=== PATIENT | male | born 1940 | race African-American/Black ===

== ENCOUNTER 2016-09-14 07:25 | Day surgery (SDC) | payer MEDICARE ==
[~2016-09-14] VITALS: Ht 172.7 cm; Wt 96.2 kg
[~2016-09-14 07:25] MED LIST: AMITRIPTYLIN25 MG PO; ASPIRIN 8181 MG PO; CEPHALEXIN500 MG PO; GABAPENTIN300 M2 PO; HUMULIN 70/30 SC; LISINOP/HCTZ1 TA1 PO; MOTRIN800 MG PO; MOTRIN800 MG/TAB PO; NAPROSYN500 MG PO; PERCOCET 5/325M1 TAB PO; SIMVASTATIN40 MG PO; VITAMIN D5000 UNIT PO; VITAMIN D50000 UN1 PO
[2016-09-14 10:13] VITALS: BP 125/71
== END 2016-09-14 10:26 | disposition home or self-care (01) ==
LOC: ENDO 07:25
PROVIDERS: ATTEND Surgery
PROC: 0DJD8ZZ Inspection of Lower Intestinal Tract, Via Natural or Artificial Opening Endoscopic (ICD-10-PCS; principal; 2016-09-14)
DX: Z12.11 Encounter for screening for malignant neoplasm of colon (principal); K57.30 Diverticulosis of large intestine without perforation or abscess without bleeding; E11.9 Type 2 diabetes mellitus without complications; I10 Essential (primary) hypertension; Z79.4 Long term (current) use of insulin; Z85.46 Personal history of malignant neoplasm of prostate

== ENCOUNTER 2019-01-20 22:13 | Emergency (ER) | payer MEDICARE ==
[~2019-01-20] VITALS: Ht 172.7 cm; Wt 94.5 kg
[2019-01-20 22:44] LABS: URINE BILIRUBIN - DIPSTICK NEGATIVE (NEGATIVE); URINE BLOOD DIPSTICK NEGATIVE (NEGATIVE); URINE COLOR YELLOW; URINE GLUCOSE - DIPSTICK NEGATIVE (NEGATIVE); URINE KETONE NEGATIVE (NEGATIVE); URINE LEUK ESTERASE NEGATIVE (NEGATIVE); URINE PROTEIN - DIPSTICK NEGATIVE (NEG-TRACE); URINE SPECIFIC GRAVITY 1.025; URINE UROBILINOGEN - DIPSTICK 0.2 E.U./dL (0.2)
[2019-01-20 22:47] LABS: URINE NITRITE - DIPSTICK POSITIVE (Negative)
[2019-01-20 22:52] LABS: URINE BACTERIA MODERATE hpf; URINE RBC 0-2 RBC/hpf (0-5); URINE WBC 0-2 WBC/hpf (0-5)
[2019-01-21 00:01] VITALS: BP 116/60
== END 2019-01-21 00:01 | disposition home or self-care (01) ==
LOC: ED 22:13
PROVIDERS: Emergency Medicine
DX: M54.5 Low back pain (principal); X50.3XXA Overexertion from repetitive movements, initial encounter; Y93.H1 Activity, digging, shoveling and raking; R82.71 Bacteriuria

== ENCOUNTER 2019-03-13 13:41 | Observation (INO) | payer MEDICARE ==
[~2019-03-13] VITALS: Ht 172.7 cm; Wt 95.2 kg
[~2019-03-13 13:41] MED LIST changes: -HUMULIN 70/30 SC; +NOVOLIN 70/30 SC
--- NOTE | 2019-03-13 13:50 | NUR ---
WHEELCHAIR TO ER ROOM 2, TO BED
[2019-03-13 14:37] LABS: IMMATURE GRANULOCYTES 0.4 % (0.0-5.0); MEAN CELL VOLUME 80.7 fL CALC (80.0-100.0); MEAN CORPUSCULAR HGB 25.7 pG CALC (26.0-32.0); MEAN CORPUSCULAR HGB CONC 31.8 g/L CALC (32.0-36.0); NEUT# 4.9 thou/uL (1.82-7.42); RED BLOOD COUNT 4.6 mill/uL (4.70-6.10); RED CELL DISTRI WIDTH 15.3 % (11.5-15.5)
[2019-03-13 14:38] LABS: HEMATOCRIT 37.1 % (39.0-50.0); HEMOGLOBIN 11.8 g/dl (14.0-18.0)
--- NOTE | 2019-03-13 14:50 | NUR ---
PATIENT RESTING REPORTING PAIN 8 ON 0-10 SCALE PATIENT AWAITING RADIOLOGY RESULTS
[2019-03-13 14:56] LABS: ALKALINE PHOSPHATASE 55 u/l (38-126); ANION GAP 16 (6-22 (CALC)); BUN 29 mg/dL (8-23); BUN/CREATININE RATIO 24 (12-20 (CALC)); CARBON DIOXIDE 25 mmol/l (22-30); CHLORIDE 97 mmol/l (95-108); CREATININE 1.2 mg/dL (0.7-1.3); GFR 59 ML/MIN (>=60 (CALC)); GFR FOR AFR.AMER. > 60 ML/MIN (>=60 (CALC)); POTASSIUM 4.1 mmol/l (3.5-5.1); SGOT/AST 24 u/l (19-48); SODIUM 134 mmol/l (137-146); TOTAL PROTEIN 7.2 g/dL (6.3-8.2)
--- NOTE | 2019-03-13 15:50 | NUR ---
PATIENT RESTING MEDICATION INFUSING PER MD ORDER PATIENT RATS PAIN 5 ON 0-10 SCALE
--- NOTE | 2019-03-13 17:01 | NUR ---
PATIENT TRANSPORTED TO [facility]
--- NOTE | 2019-03-13 17:01 | NUR ---
CALLED MED SURG AND GAVE REPORT TO ZELDA.
[2019-03-13 17:07] VITALS: BP 133/74
--- NOTE | 2019-03-13 17:41 | NUR ---
PT TRANSPORTED TO [facility] VIA STRETCHER ACCOMPIANED BY ER NURSE. VS DONE. [PT A/O X3. RESP EVEN AND UNLABORED. LUNG SOUNDS CLEAR. BOWEL SOUNDS ACTIVE X4. STRONG RADIAL/PEDAL PULSES. #20 RAC SL. FLUSHED AND PATENT. SITE APPEARS HEALTHY. LT ELBOW SWELLING NOTED; WARM TO TOUCH; PT C/O ACHING PAIN 8 OUT OF 10. MEDICATED W/ LORTAB 5MG PO. REPOSITIONED FOR COMFORT. SKIN INTACT. PT DENIES ANY FURTHER NEEDS. POC DISCUSSED. SAFETY PRECAUTIONS IN PLACE. CALL LIGHT IN REACH. WILL CONTINUE TO MONITOR.
--- NOTE | 2019-03-13 19:06 | NUR ---
REPORT RECEIVED FROM NIKHIL NDIAYE. PT RESTING IN BED. NO S/S OF DISTRESS AT THIS TIME. SAFETY PRECAUTIONS IN PLACE. WILL CONTINUE TO MONITOR.
[2019-03-13 19:35] VITALS: BP 122/67
--- NOTE | 2019-03-13 20:15 | NUR ---
PT SITTING ON THE SIDE OF THE BED. ALERT AND ORIENTED. RESPIRATIONS EVEN AND UNLABORED ON RA. LUNGS SOUND CLEAR. PEDAL PULSES ARE STRONG. PT REPORTS HAVING A HEAD ACHE PAIN OF A 1/10 PT TO BE MEDICATED PER EMAR ORDERS. SAFETY PRECAUTIONS IN PLACE, WILL CONTINUE TO MONITOR.
--- NOTE | 2019-03-14 00:08 | NUR ---
PT RESTING IN BED WITH EYES CLOSED. RESPIRATIONS EVEN AND UNLABORED ON RA. NO S/S OF DISTRESS AT THIS TIME. WILL CONTINUE TO MONITOR.
[2019-03-14 04:41] VITALS: BP 121/66
[2019-03-14 05:46] LABS: ANION GAP 14 (6-22 (CALC)); BUN 27 mg/dL (8-23); BUN/CREATININE RATIO 29 (12-20 (CALC)); CARBON DIOXIDE 27 mmol/l (22-30); CHLORIDE 100 mmol/l (95-108); CREATININE 0.9 mg/dL (0.7-1.3); GFR > 60 ML/MIN (>=60 (CALC)); GFR FOR AFR.AMER. > 60 ML/MIN (>=60 (CALC)); POTASSIUM 4.1 mmol/l (3.5-5.1); SODIUM 137 mmol/l (137-146)
--- NOTE | 2019-03-14 06:55 | NUR ---
PT REPORT RECIEVED FROM JYOTHI WEBSTER. PT SLEEPING. NO S/S OF DISTRESS. CALL LIGHT IN REACH. WILL CONTINUE TO MONITOR.
[2019-03-14 07:30] VITALS: BP 133/76
--- NOTE | 2019-03-14 07:30 | NUR ---
PT A/O X3. RESP EVEN AND UNLABORED. LUNG SOUNDS CLEAR. BOWEL SOUNDS ACTIVE X4. STRONG RADIAL/PEDAL PULSES. #20 RAC SL. FLUSHED AND PATENT; SITE APPEARS HEALTHY. SKIN INTACT. PT C/O ACHING ELBOW PAIN; 9 OUT OF 10 ON PAIN SCALE, TRACE OF EDEMA/ WARM TO TOUCH. MEDICATED W/ 5MG LORTAB PO; REPOSITIONED FOR COMFORT. PT DENIES ANY FURTHER NEEDS. POC DISCUSSED. SAFETY PRECAUTIONS IN PLACE. CALL LIGHT IN REACH. WILL CONTINUE TO MONITOR.
[2019-03-14 07:39] LABS: HEMATOCRIT 39.6 % (39.0-50.0); HEMOGLOBIN 12.4 g/dl (14.0-18.0); IMMATURE GRANULOCYTES 0.2 % (0.0-5.0); MEAN CELL VOLUME 81.5 fL CALC (80.0-100.0); MEAN CORPUSCULAR HGB 25.5 pG CALC (26.0-32.0); MEAN CORPUSCULAR HGB CONC 31.3 g/L CALC (32.0-36.0); NEUT# 3.73 thou/uL (1.82-7.42); RED BLOOD COUNT 4.86 mill/uL (4.70-6.10); RED CELL DISTRI WIDTH 15.2 % (11.5-15.5)
[2019-03-14] MEDS ORDERED: LYRICA75 MG PO (09:27)
[2019-03-14] MEDS ORDERED: CHOLESTEROL (09:28)
--- NOTE | 2019-03-14 12:15 | NUR ---
PT ON PHONE. NO C/O PAIN OR NEEDS. CALL LIGHT IN REACH. WILL CONTINUE TO MONITOR.
[2019-03-14 15:32] VITALS: BP 120/69
--- NOTE | 2019-03-14 16:12 | NUR ---
PT WATCHING TELEVISION. NO C/O PAIN OR NEEDS. CALL LIGHT IN REACH. WILL CONTINUE TO MONITOR.
--- NOTE | 2019-03-14 19:00 | NUR ---
REPORT FROM ZELDA TEJEDA. PT RESTING IN BED. ALERT AND ORIENTED. PT DENIES ANY PAIN OR DISCOMFORT AT THIS TIME. IV SITE APPEARS HEALTHY. NO APPARENT DISTRESS NOTED. DISCUSSED POC. PT VERBALIZED UNDERSTANDING. CALL LIGHT WITHIN REACH. WILL CONTINUE TO MONITOR.
[2019-03-14 19:28] VITALS: BP 131/69
--- NOTE | 2019-03-14 22:20 | NUR ---
PT MEDICATED FOR LEFT ARM PAIN 9-10 WITH PRN LORTAB. ARM ELEVATED ON PILLOW AT THIS TIME. PT DENIES ANY OTHER WANTS OR NEEDS. IV ABT INFUSING WITHOUT DIFFICULTY. NO S/S OF ADVERSE REACTION NOTED. CALL LIGHT WITHIN REACH. WILL CONTINUE TO MONITOR.
--- NOTE | 2019-03-15 02:19 | NUR ---
PT RESTING IN BED WITH EYES CLOSED. NO APPARENT DISTRESS NOTED. CALL LIGHT WITHIN REACH. WILL CONTINUE TO MONITOR.
[2019-03-15 04:54] VITALS: BP 141/79
--- NOTE | 2019-03-15 06:28 | NUR ---
ACCUCHECK 59. ASYMPTOMATIC. JUICE PROVIDED TO PT AT THIS TIME. WILL CONTINUE TO MONITOR.
--- NOTE | 2019-03-15 06:30 | NUR ---
PT MEDICATED FOR PAIN WITH PO LORTAB. ALSO ADMINISTERED MOM AT THIS TIME. PT DENIES ANY OTHER WANTS OR NEEDS. CALL LIGHT WITHIN REACH. WILL CONTINUE TO MONITOR.
--- NOTE | 2019-03-15 06:45 | NUR ---
REPORT RECEIVED. PT RESTING IN BED. WILL CONTINUE TO MONITOR.
--- NOTE | 2019-03-15 06:50 | NUR ---
CURRENT ACCUCHECK 69.
[2019-03-15 07:45] VITALS: BP 144/79
--- NOTE | 2019-03-15 07:45 | NUR ---
PT RESTING IN BED AWAKE. PT IS ALERT AND ORIENTED X3. SHIFT ASSESSMENT COMPLETED AT THIS TIME. IV PATENT X1. CALL LIGHT IN REACH. WILL CONTINUE TO MONITOR.
[2019-03-15 08:55] VITALS: BP 144/79
--- NOTE | 2019-03-15 11:35 | NUR ---
PT SITTING UP EATING LUNCH. RESP ARE EVEN AND UNLABORED. NO DISTRESS NOTED. CALL LIGHT IN REACH. WILL CONTINUE TO MONITOR.
[2019-03-15] MEDS ORDERED: KEFLEX500 M1 PO (12:29)
[2019-03-15] MEDS ORDERED: TRAMADOL HCL50 MG PO (12:29)
--- NOTE | 2019-03-15 12:30 | NUR ---
DR SARGENT AT BEDSIDE AT THIS TIME
--- NOTE | 2019-03-15 12:51 | NUR ---
SLING APPLIED PER MD ORDERS
--- NOTE | 2019-03-15 13:00 | NUR ---
IV site discontinued, cath intact. No edema , no redness, voices no discomfort.
--- NOTE | 2019-03-15 13:30 | NUR ---
DISCHARGE INSTRUCTIONS REVIEWED WITH PATIENT. PT VERBALIZED UNDERSTANDING. PHONED VOLUNTEER FOR WHEELCHAIR.
--- NOTE | 2019-03-15 13:39 | NUR ---
Discharge instructions given. Patient verbalizes understanding of same. Discharged in stable condition via Wheelchair to Home with family. All belongings sent with pt.
== END 2019-03-15 13:37 | disposition home or self-care (01) ==
LOC: ED 13:41 → ED-I 14:05 → ED 14:05 → ED-I 15:40 → ED 16:04 → MS2 16:05
PROVIDERS: ADMIT Internal Medicine; ATTEND Internal Medicine
PROC: 3E0234Z Introduction of Serum, Toxoid and Vaccine into Muscle, Percutaneous Approach (ICD-10-PCS; principal; 2019-03-15)
DX: S52.132A Displaced fracture of neck of left radius, initial encounter for closed fracture (principal); L03.114 Cellulitis of left upper limb; G56.01 Carpal tunnel syndrome, right upper limb; I10 Essential (primary) hypertension; E11.9 Type 2 diabetes mellitus without complications; Z79.4 Long term (current) use of insulin; Z23 Encounter for immunization; X58.XXXA Exposure to other specified factors, initial encounter
CPT/HCPCS: Q9967

== ENCOUNTER 2019-12-22 17:45 | Emergency (ER) | payer MEDICARE ==
[~2019-12-22] VITALS: Ht 172.7 cm; Wt 94.0 kg
[~2019-12-22 17:45] MED LIST changes: +CHOLESTEROL; +KEFLEX500 M1 PO; +LYRICA75 MG PO; +TRAMADOL HCL50 MG PO
[2019-12-22] MEDS ORDERED: MILK OF MAG30 ML/UDC PO (17:59)
[2019-12-22 18:28] LABS: IMMATURE GRANULOCYTES 0.2 % (0.0-5.0); MEAN CELL VOLUME 81.1 fL CALC (80.0-100.0); MEAN CORPUSCULAR HGB CONC 30.8 g/dL CAL (32.0-36.0); NEUT# 2.62 thou/uL (1.82-7.42); RED BLOOD COUNT 5.92 mill/uL (4.70-6.10); RED CELL DISTRI WIDTH 16.9 % (11.5-15.5)
[2019-12-22 18:29] LABS: HEMOGLOBIN 14.8 g/dl (14.0-18.0)
[2019-12-22 18:45] LABS: ALBUMIN 4.5 g/dL (3.2-5.0); ALKALINE PHOSPHATASE 73 u/l (38-126); ANION GAP 12 (6-22 (CALC)); BILIRUBIN, TOTAL 0.8 mg/dL (0.0-1.4); BUN 22 mg/dL (8-23); BUN/CREATININE RATIO 17 (12-20 (CALC)); CARBON DIOXIDE 28 mmol/l (22-30); CHLORIDE 100 mmol/l (95-108); CREATININE 1.3 mg/dL (0.7-1.3); GFR 54 ML/MIN (>=60 (CALC)); GFR FOR AFR.AMER. > 60 ML/MIN (>=60 (CALC)); LIPASE 222 u/l (23-300); SGOT/AST 30 u/l (19-48); SODIUM 136 mmol/l (137-146)
[2019-12-22 20:37] VITALS: BP 110/62
== END 2019-12-22 20:21 | disposition home or self-care (01) ==
LOC: ED 17:45
DX: K59.00 Constipation, unspecified (principal); E11.9 Type 2 diabetes mellitus without complications; I10 Essential (primary) hypertension; Z79.4 Long term (current) use of insulin

== ENCOUNTER 2021-02-15 18:43 | Emergency (ER) | payer MEDICARE, OTHER ==
[~2021-02-15] VITALS: Ht 172.7 cm; Wt 95.4 kg
[~2021-02-15 18:43] MED LIST changes: +MILK OF MAG30 ML/UDC PO
[2021-02-15] MEDS ORDERED: CYCLOBENZAPRINE10 MG PO (21:02)
[2021-02-15] MEDS ORDERED: NAPROXEN500 MG PO (21:02)
[2021-02-15 21:10] VITALS: BP 172/91
== END 2021-02-15 21:14 | disposition home or self-care (01) | DRG 552 ==
LOC: ED 18:43
DX: S13.9XXA Sprain of joints and ligaments of unspecified parts of neck, initial encounter (principal); E11.9 Type 2 diabetes mellitus without complications; I10 Essential (primary) hypertension; E78.00 Pure hypercholesterolemia, unspecified; V54.5XXA Driver of pick-up truck or van injured in collision with heavy transport vehicle or bus in traffic accident, initial encounter; Z79.84 Long term (current) use of oral hypoglycemic drugs

== ENCOUNTER 2021-04-16 14:49 | Observation (INO) | payer MEDICARE ==
[~2021-04-16] VITALS: Ht 172.7 cm; Wt 92.0 kg
[~2021-04-16 14:49] MED LIST changes: +CYCLOBENZAPRINE10 MG PO; +NAPROXEN500 MG PO
--- NOTE | 2021-04-16 14:55 | NUR ---
PT TO ROOM VIA WC FOR BEDSIDE TRIAGE ALERT AND RESPONSIVE
[2021-04-16 15:49] LABS: HEMATOCRIT 44.6 % (39.0-50.0); HEMOGLOBIN 13.8 g/dl (14.0-18.0); IMMATURE GRANULOCYTES 0.1 % (0.0-5.0); MEAN CORPUSCULAR HGB 25.4 pG CALC (26.0-32.0); MEAN CORPUSCULAR HGB CONC 30.9 g/dL CAL (32.0-36.0); NEUT# 4.23 thou/uL (1.82-7.42); RED BLOOD COUNT 5.44 mill/uL (4.70-6.10); RED CELL DISTRI WIDTH 15.4 % (11.5-15.5)
--- NOTE | 2021-04-16 15:51 | NUR ---
PT RESTING ON ED BED FOLLOWING PORTABLE CHEST X-RAY. PT REPORTS PAIN IMPROVING AND RATES AT 7/10, NO DENIES ANY NAUSEA. SKIN WARM AND DRY. FLUIDS INFUSING AT BOLUS RATE, IV SITE CDI. PT STABLE AT THIS TIME.
[2021-04-16 16:02] LABS: ALBUMIN 4.2 g/dL (3.2-5.0); ALKALINE PHOSPHATASE 74 u/l (38-126); ANION GAP 14 (6-22 (CALC)); BUN 23 mg/dL (8-23); BUN/CREATININE RATIO 18 (12-20 (CALC)); CARBON DIOXIDE 27 mmol/l (22-30); CHLORIDE 99 mmol/l (95-108); CREATININE 1.3 mg/dL (0.7-1.3); GFR 53 ML/MIN (>=60 (CALC)); GFR FOR AFR.AMER. > 60 ML/MIN (>=60 (CALC)); LIPASE 234 u/l (23-300); POTASSIUM 4.2 mmol/l (3.5-5.1); SGOT/AST 28 u/l (19-48); SODIUM 135 mmol/l (137-146); TOTAL PROTEIN 8.2 g/dL (6.3-8.2)
[2021-04-16 16:03] LABS: BILIRUBIN, TOTAL 0.8 mg/dL (0.0-1.4)
[2021-04-16 16:13] LABS: MYOGLOBIN 155 ng/mL (0 - 121)
--- NOTE | 2021-04-16 17:05 | NUR ---
PT ASSISTED WITH REPOSITIONING IN BED FOR COMFORT. PT STATES PAIN IS SOME BETTER AND PRESENT WHEN TOUCHING OR WITH MOVEMENT. PT STABLE. WILL CONTINUE TO MONITOR.
--- NOTE | 2021-04-16 18:05 | NUR ---
EKG REPEATED PER VERBAL ORDER FROM DR AYALA AND HANDED OFF TO SPLITTING MACHINE OPERATOR TO BE UPLOADED. PT STABLE AT THIS TIME. WILL CONTINUE TO MONITOR.
--- NOTE | 2021-04-16 18:35 | NUR ---
PT TO BE ADMITTED, GOING TO ROOM 271
--- NOTE | 2021-04-16 19:10 | NUR ---
CALL PLACED TO MED/SURG TO GIVE REPORT-RN WILL CALL BACK
--- NOTE | 2021-04-16 19:23 | NUR ---
SBAR REPORT GIVEN TP JYOTHI MEJÍA MED/SURG. PT TO BE ADMITTED TO ROOM 271. RN WILL CALL WHEN ROOM IS READY.
--- NOTE | 2021-04-16 20:40 | NUR ---
PT TAKEN TO MED SURG VIA CART IN STABLE CONDITION. PT'S BELONGINGS BAGGED AND HANDED OFF TO KYM ROE ALONG WITH ALL DOCUMENTS.
[2021-04-16 20:45] VITALS: BP 141/74
--- NOTE | 2021-04-16 20:45 | NUR ---
PT ARRIVED TO MED SURG UNIT VIA STRETCHER ACCOMPANIED BY ED NURSE. PT APPEARS TO BE IN STABLE CONDITION AT THIS TIME, SELF AMBULATED TO BED FROM STRETCHER WITH STABLE GAIT. TIMBER APPRAISER IN W/PT OBTAINING V/S AND ORIENTING PT TO ROOM
--- NOTE | 2021-04-16 20:56 | NUR ---
PT IS ON CELLPHONE AT THIS TIME, WILL RETURN FOR ASSESSMENT AND ADMISSION.
--- NOTE | 2021-04-16 21:10 | NUR ---
PT ACCU-CHECK OBTAINED TO READ 47, PT REPORTS THAT HE HAS BEEN IN THE ED AND THAT HE HAS NOT HAD ANYTHING TO EAT SINCE 0900 THIS MORNING. DEXTROSE ADMINISTERED IV AND PO JUICE AND FOOD PROVIDED. PT IS EATING A TV DINNER AT THIS TIME AND [employer] IS RUNNING. PT REPORTS FEELING ASYMPTOMATIC.
--- NOTE | 2021-04-16 23:00 | NUR ---
PT AWAKE WATCHING TV, HE ASKED FOR SLEEP AIDE, WILL REQUEST ORDERS. PT DENIES ANY DISTRESSES AT THIS TIME. CALL LIGHT AT SIDE.
[2021-04-16 23:45] VITALS: BP 118/65
[2021-04-17 03:45] VITALS: BP 113/66
[2021-04-17 06:07] LABS: HEMATOCRIT 44.4 % (39.0-50.0); HEMOGLOBIN 13.8 g/dl (14.0-18.0); IMMATURE GRANULOCYTES 0.2 % (0.0-5.0); MEAN CELL VOLUME 81.6 fL CALC (80.0-100.0); MEAN CORPUSCULAR HGB 25.4 pG CALC (26.0-32.0); MEAN CORPUSCULAR HGB CONC 31.1 g/dL CAL (32.0-36.0); NEUT# 2.98 thou/uL (1.82-7.42); RED BLOOD COUNT 5.44 mill/uL (4.70-6.10); RED CELL DISTRI WIDTH 15.4 % (11.5-15.5)
--- NOTE | 2021-04-17 06:15 | NUR ---
PT APPEARS TO BE SLEEPING, BUT I ENTERED ROOM, HE SPOKE AND REPORTED THAT HE HAD BEEN AWAKE SINCE 0500. REPORTS THAT HIS R.CHEST AREA STILL HURTS WHEN HE MOVES AND TURNS OVER. DENIES NAUSEA, PRESSURE, SOB OR OTHER SYMPTOMS. PT DENIES ANY NEEDS AT THIS TIME. CALL LIGHT AT SIDE AND PT ENCOURAGED TO CALL NEEDS ARISE.
[2021-04-17 06:25] LABS: ANION GAP 11 (6-22 (CALC)); BUN 18 mg/dL (8-23); BUN/CREATININE RATIO 17 (12-20 (CALC)); CALCULATED LDLCHOLESTEROL 110 mg/dL (62-129 (CALC)); CARBON DIOXIDE 29 mmol/l (22-30); CHLORIDE 100 mmol/l (95-108); CREATININE 1.1 mg/dL (0.7-1.3); GFR > 60 ML/MIN (>=60 (CALC)); GFR FOR AFR.AMER. > 60 ML/MIN (>=60 (CALC)); HDL CHOLESTEROL 46 mg/dL (>=40); POTASSIUM 4.6 mmol/l (3.5-5.1); SODIUM 136 mmol/l (137-146); TOTAL CHOLESTEROL 186 mg/dl (0-199); TOTAL TRIGLYCERIDES 151 mg/dl (30-149); VLDL CHOLESTROL 30 mg/dl (0-38 (CALC))
[2021-04-17 07:15] VITALS: BP 119/62
--- NOTE | 2021-04-17 07:15 | NUR ---
PATEIENT LAYING IN BED AT THIS TIME. ALERT AND ORIENTED X 3 DENIES ANY PAIN AT THIS TIME. PLEATER HAND DONE SEE INTERVENTIONS TELE MONITOR IN PLACE AND BEING MONITORED BY ED. SIDERAILS ARE UP X 2 CALL LIGHT IS WITHIN REACH. LUNG FIELD ARE CLEAR AT THIS TIME IN ALL LUNG BAKER. WILL CONTINUE TO MONITOR.
[2021-04-17] MEDS ORDERED: SIMVASTATIN40 MG PO (07:16)
[2021-04-17] MEDS ORDERED: CYMBALTA60 MG PO (07:16)
[2021-04-17] MEDS ORDERED: ZOLPIDEM5 M1 PO (07:16)
[2021-04-17] MEDS ORDERED: TRAMADOL HCL50 MG PO (09:53)
--- NOTE | 2021-04-17 10:37 | NUR ---
PATIENT MEDICATIED AT THIS TIME WITH 50MG OF TRAMADOL FOR PAIN IN CHEST MUSCLE WALL. PATIENT HAS BEEN D/C AT THIS TIME AND IV REMOVED AND TELE MONITOR REMOVE AND ED FELIPE NOTIFIED. PATIENT UNDERSTANDS D/C INSTRUCTIONS AT THIS TIME.
--- NOTE | 2021-04-17 11:02 | NUR ---
Discharge instructions given. Patient verbalizes understanding of same. Discharged in stable condition via Wheelchair to Home with family. All belongings sent with pt.
== END 2021-04-17 10:50 | disposition home or self-care (01) ==
LOC: ED 14:49 → MS2 17:46 → ED 17:50 → ED-I 17:50 → ED 18:49 → MS2 04-17 10:50
PROVIDERS: Emergency Medicine; ADMIT Internal Medicine; ATTEND Internal Medicine
DX: R07.9 Chest pain, unspecified (principal); I10 Essential (primary) hypertension; E11.40 Type 2 diabetes mellitus with diabetic neuropathy, unspecified; E78.00 Pure hypercholesterolemia, unspecified; Z79.4 Long term (current) use of insulin; Z20.822 Contact with and (suspected) exposure to COVID-19
CPT/HCPCS: G0378

== ENCOUNTER 2022-06-16 09:20 | Day surgery (SDC) | payer MEDICARE ==
[~2022-06-16] VITALS: Ht 172.7 cm; Wt 94.3 kg
[~2022-06-16 09:20] MED LIST changes: +ASPIRIN 81 LOW81 MG PO; +CYMBALTA60 MG PO; +ZOLPIDEM5 M1 PO
[2022-06-16] MEDS ORDERED: MOTRIN200 MG PO (09:35)
[2022-06-16 11:28] VITALS: BP 98/66
== END 2022-06-16 11:35 | disposition home or self-care (01) ==
LOC: ENDO 09:20
PROVIDERS: ATTEND Surgery
PROC: 0DBN8ZX Excision of Sigmoid Colon, Via Natural or Artificial Opening Endoscopic, Diagnostic (ICD-10-PCS; principal; 2022-06-16)
DX: Z12.11 Encounter for screening for malignant neoplasm of colon (principal); K63.5 Polyp of colon; K57.30 Diverticulosis of large intestine without perforation or abscess without bleeding; K64.8 Other hemorrhoids; I10 Essential (primary) hypertension; E11.40 Type 2 diabetes mellitus with diabetic neuropathy, unspecified; Z79.4 Long term (current) use of insulin

== ENCOUNTER 2022-07-25 06:36 | Day surgery (SDC) | payer MEDICARE ==
[~2022-07-25] VITALS: Ht 172.7 cm; Wt 96.2 kg
[~2022-07-25 06:36] MED LIST changes: +MOTRIN200 MG PO
[2022-07-25 09:13] VITALS: BP 131/86
== END 2022-07-25 09:16 | disposition home or self-care (01) ==
LOC: ORM 06:36
PROVIDERS: ATTEND Orthopaedic Surgery
PROC: 01N50ZZ Release Median Nerve, Open Approach (ICD-10-PCS; principal; 2022-07-25)
DX: G56.02 Carpal tunnel syndrome, left upper limb (principal); I10 Essential (primary) hypertension; E11.9 Type 2 diabetes mellitus without complications; M10.9 Gout, unspecified; Z79.4 Long term (current) use of insulin
CPT/HCPCS: J0131

== ENCOUNTER 2023-06-15 12:17 | Observation (INO) | payer MEDICARE ==
[~2023-06-15] VITALS: Ht 172.7 cm; Wt 96.6 kg
[2023-06-15] VITALS (29 sets, daily range): BP systolic 98–139; BP diastolic 52–92
--- NOTE | 2023-06-15 12:20 | NUR ---
PT TO ER ROOM 10 ITH STEADY GAIT.
[2023-06-15 12:42] LABS: BASO% 0.6 % (0-3); EOS% 3.9 % (0-8); HEMATOCRIT 41.5 % (39.0-50.0); HEMOGLOBIN 12.9 g/dl (14.0-18.0); LYMPH% 30.4 % (15-41); MEAN CELL VOLUME 83.5 fL CALC (80.0-100.0); MEAN CORPUSCULAR HGB CONC 31.1 g/dL CAL (32.0-36.0); MONO% 8.5 % (2-13); NEUT# 2.92 thou/uL (1.82-7.42); NEUT% 56.6 % (42-76); RED BLOOD COUNT 4.97 mill/uL (4.70-6.10)
[2023-06-15 13:03] LABS: ALBUMIN 4.1 g/dL (3.2-5.0); BILIRUBIN, TOTAL 0.6 mg/dL (0.2-1.3); CREATININE 1.4 mg/dL (0.7-1.3); POTASSIUM 3.8 mmol/l (3.5-5.1); TOTAL PROTEIN 7.5 g/dL (6.3-8.2)
--- NOTE | 2023-06-15 13:31 | NUR ---
PT IS RESTING IN BED WATCHING TV;VSS;NO DISTRESS NOTED;AWAITING TEST RESULTS AND PT AWARE OF THE EXTENDED WAIT;CALL LIGHT WITHIN REACH
--- NOTE | 2023-06-15 14:30 | NUR ---
PT RESTING IN BED WATCHING TV WITH FAMILY AT BEDSIDE;VSS;NO DISTRESS NOTED;CALL LIGHT WITHIN REACH
--- NOTE | 2023-06-15 15:30 | NUR ---
PT IS RELAXING IN BED TALKING ON HIS PHONE;NO DISTRESS NOTED;VSS;CALL LIGHT WITHIN REACH
--- NOTE | 2023-06-15 16:30 | NUR ---
PT TALKING ON HIS PHONE UPON ENTERING THE ROOM;REPEAT EKG PERFORMED;VSS;NO DISTRESS NOTED;PT AWARE OF POSSIBLE ADMISSION;CALL LIGHT WITHIN REACH
--- NOTE | 2023-06-15 17:30 | NUR ---
PT EATING DINNER;VSS;NO DISTRESS NOTED;CALL LIGHT WITHIN REACH
--- NOTE | 2023-06-15 18:30 | NUR ---
PT RESTING COMFORTABLY IN BED WATHCING TV; ;WILL TRANSFER TO MED-SURG AFTER REPORT;VSS;CALL LIGHT WITHIN REACH
--- NOTE | 2023-06-15 19:06 | NUR ---
PT RESTING IN BED. VSS. KAREEM LIGHT IN REACH. PT UPDATED ON CONTINUED WAIT TIME.
--- NOTE | 2023-06-15 19:40 | NUR ---
PT SBAR REPORT GIVEN TO NURSE BANDAR LPN;
--- NOTE | 2023-06-15 20:11 | NUR ---
PT ARRIVED FROM ER VIA STRETCHER ACCOMPANIED BY STAFF. IV SITE IS FREE FROM REDNESS OR EDEMA. TELE MONITOR IN PLACE. NO DISTRESS NOTED. HR IS REG,PULSES ARE STRONG X4,ABD IS SOFT AND ROUND WITH ACTIVE BS. BREATH SOUNDS ARE CLEAR,BILATERALLY. CONTINUE TO OSBERVE AND MONITOR.
[2023-06-15] MEDS ORDERED: HUMULIN 70/30 SC (20:49)
[2023-06-15] MEDS ORDERED: NOVOLIN 70/30 SC (20:49)
--- NOTE | 2023-06-16 | NUR ---
PT IS RELAXING DID INQUIRE ABOUT HAVING SOMETHING TO HELP HIM SLEEP NO ORDERS
[2023-06-16 00:45] VITALS: BP 120/50
--- NOTE | 2023-06-16 04:00 | NUR ---
PT IS RELAXING IN BED WITH NO DISTRESS NOTED. IV SITE IS FREE FROM REDNESS OR EDEMA.
[2023-06-16 04:09] VITALS: BP 118/69
[2023-06-16 04:56] LABS: HEMATOCRIT 39.5 % (39.0-50.0); HEMOGLOBIN 12.3 g/dl (14.0-18.0); MEAN CELL VOLUME 84.2 fL CALC (80.0-100.0); MEAN CORPUSCULAR HGB 26.2 pG CALC (26.0-32.0); MEAN CORPUSCULAR HGB CONC 31.1 g/dL CAL (32.0-36.0); RED BLOOD COUNT 4.69 mill/uL (4.70-6.10); RED CELL DISTRI WIDTH 14.9 % (11.5-15.5)
[2023-06-16 05:20] LABS: ALBUMIN 3.5 g/dL (3.2-5.0); ALKALINE PHOSPHATASE 54 u/l (38-126); ANION GAP 10 (6-22 (CALC)); BILIRUBIN, TOTAL 0.6 mg/dL (0.2-1.3); BUN 22 mg/dL (8-23); BUN/CREATININE RATIO 19 (12-20 (CALC)); CARBON DIOXIDE 30 mmol/l (22-30); CHLORIDE 103 mmol/l (95-108); CREATININE 1.2 mg/dL (0.7-1.3); GFR FOR AFR.AMER. > 60 ML/MIN (>=60 (CALC)); GFR OTHER RACES 58 ML/MIN (>=60 (CALC)); MAGNESIUM 1.9 mg/dL (1.6-2.3); POTASSIUM 3.9 mmol/l (3.5-5.1); SGOT/AST 32 u/l (19-48); SODIUM 139 mmol/l (137-146); TOTAL PROTEIN 6.4 g/dL (6.3-8.2)
[2023-06-16 06:45] VITALS: BP 112/62
[2023-06-16 06:47] VITALS: BP 112/62
--- NOTE | 2023-06-16 09:00 | NUR ---
PATIENT RESTING NO DISTRESS NOTED. PATIENT REPORTS PAIN 9/10 ON RIGHT SIDE CHEST. NURSE PUT ON LIDOCAIN PATCH AND GAVE IBUPROFEN. NO OTHER CONCERNS AT THIS TIME. FEET CHECKED DUE TO DM NO WOUNDS FOUND. PATIENT EDUCATED ON THE IMPORTANCE OF CHECKING HIS FEET REQULARLY. CALL LIGHT WITHIN REACH. PLAN OF CARE ONGOING.
[2023-06-16 10:18] VITALS: BP 121/68
[2023-06-16 10:27] VITALS: BP 121/68
[2023-06-16] MEDS ORDERED: NEURONTIN300 MG PO (10:57)
[2023-06-16] MEDS ORDERED: LIDOCAINE PAIN RE4 % TD (10:59)
--- NOTE | 2023-06-16 11:55 | NUR ---
PATIENT REPORTS PAIN HAS IMPOROVED FROM 9 TO 4 ON HIS CHEST BUT NOW HIS NECK HURTS. NURSE ENCOURAGE HIM TO GET OUT OF BED AND STRETCH.
--- NOTE | 2023-06-16 12:26 | NUR ---
Discharge instructions given. Patient verbalizes understanding of same. Discharged in stable condition via Wheelchair to Home with family. All belongings sent with pt.
== END 2023-06-16 12:26 | disposition home or self-care (01) ==
LOC: ED 12:17 → ED-I 12:53 → ED 12:53 → ED-I 12:53 → ED 16:29 → MS2 16:30
PROVIDERS: Nurse Practitioner; ADMIT Student in an Organized Health Care Education/Training Program; ATTEND Student in an Organized Health Care Education/Training Program
DX: R07.89 Other chest pain (principal); I10 Essential (primary) hypertension; E11.9 Type 2 diabetes mellitus without complications; E78.00 Pure hypercholesterolemia, unspecified; Z79.4 Long term (current) use of insulin
CPT/HCPCS: J1650